=== PATIENT | female | born 1935 | race Hispanic/Latino ===

== ENCOUNTER 2021-01-26 20:19 | Inpatient (IN) | payer MEDICARE, SELFPAY ==
[2021-01-26 20:49] LABS: #Basophils 0.1 thou/uL (0.0-0.2); #Eosinphils 0.2 thou/uL (0.0-0.7); #Lymphocytes 4.5 thou/uL (1.20-3.40); #Monocytes 0.8 thou/uL (0.11-0.59); #Neutrophils 5.1 thou/uL (1.40-6.50); %Basophils 0.7 % (0.0-1.0); %Eosinophils 1.7 % (0.0-10.0); %Lymphocytes 42.5 % (21.0-51.0); %Monocytes 7.3 % (0.0-10.0); %Neutrophils 47.8 % (42.0-75.0); Hemoglobin 12.5 g/dL (12.0-16.0); Mean Corpuscular HGB CONC 33.8 g/dL (32.0-36.0); Mean Corpuscular Volume 91.6 fL (78.0-98.0); Mean Platelet Volume 7.2 fL (7.4-10.4); Platelet Count 317 thou/uL (130-400); RBC Distribution Width 12.3 % (11.5-14.5); Red Blood Cell (RBC) Count 4.04 mill/uL (4.20-5.40); White Blood Cell (WBC) Count 10.6 thou/uL (4.8-10.8)
[2021-01-26 21:02] LABS: Prothrombin Time 13.3 sec (12.0-14.7)
[2021-01-26 21:03] LABS: PTT 30.3 sec (22.9-36.1)
[2021-01-26] MEDS ORDERED: levETIRAcetam in NS 100 ML ONE (21:05)
[2021-01-26 21:10] LABS: ALT (SGPT) 10 U/L (8-55); AST (SGOT) 12 U/L (5-34); Albumin 3.3 g/dL (3.4-4.8); Alkaline Phosphatase 140 U/L (40-110); Anion Gap 13 mmol/L (10-20); BUN (Urea Nitrogen) 23 mg/dL (9.8-20.1); Bilirubin, Total 0.5 mg/dL (0.2-1.2); CK (CPK) 26 U/L (29-168); Calc. Creatinine Clearance 0 mL/min (70-130); Calcium 9.1 mg/dL (7.8-10.44); Carbon Dioxide 24 mmol/L (23-31); Chloride 107 mmol/L (98-107); Globulin 3.1 g/dL (2.4-3.5); Glucose 104 mg/dL (83-110); Lipase 12 U/L (8-78); Potassium 4.2 mmol/L (3.5-5.1); Protein, Total 6.4 g/dL (5.8-8.1); Sodium 140 mmol/L (136-145)
[2021-01-26] MEDS ORDERED: Aspirin 325 MG TAB ONE (21:42)
[2021-01-26] MEDS ORDERED: Senokot S 8.6-50 MG TAB PO PRN (22:29)
[2021-01-27] MEDS: Sodium Chloride 0.9% 1,000 ML IV SCH ×2 (00:13→10:50)
[2021-01-27 00:20] LABS: Troponin I Less than 0.010 ng/mL (< 0.028)
[2021-01-27 03:01] VITALS: BMI 24.8
[2021-01-27 03:36] LABS: #Basophils 0.1 thou/uL (0.0-0.2); #Eosinphils 0.1 thou/uL (0.0-0.7); #Lymphocytes 3.1 thou/uL (1.20-3.40); #Monocytes 0.8 thou/uL (0.11-0.59); #Neutrophils 6.3 thou/uL (1.40-6.50); %Basophils 0.8 % (0.0-1.0); %Eosinophils 1.1 % (0.0-10.0); %Neutrophils 60.2 % (42.0-75.0); Hemoglobin 11.6 g/dL (12.0-16.0); Mean Corpuscular HGB CONC 33.6 g/dL (32.0-36.0); Mean Corpuscular Hemoglobin 30.8 pg (27.0-31.0); Mean Corpuscular Volume 91.8 fL (78.0-98.0); Mean Platelet Volume 7.7 fL (7.4-10.4); Platelet Count 263 thou/uL (130-400); RBC Distribution Width 12.3 % (11.5-14.5); Red Blood Cell (RBC) Count 3.76 mill/uL (4.20-5.40); White Blood Cell (WBC) Count 10.4 thou/uL (4.8-10.8)
[2021-01-27 03:47] LABS: ALT (SGPT) 9 U/L (8-55); AST (SGOT) 10 U/L (5-34); Albumin 2.9 g/dL (3.4-4.8); Alkaline Phosphatase 121 U/L (40-110); Anion Gap 11 mmol/L (10-20); BUN (Urea Nitrogen) 20 mg/dL (9.8-20.1); Bilirubin, Total 0.5 mg/dL (0.2-1.2); Calc. Creatinine Clearance 46 mL/min (70-130); Calcium 8.6 mg/dL (7.8-10.44); Carbon Dioxide 23 mmol/L (23-31); Cardiac Risk 4.2 (Less than 4.5); Chloride 110 mmol/L (98-107); Cholesterol 158 mg/dl (< 200 Desired); Globulin 2.8 g/dL (2.4-3.5); Glucose 106 mg/dL (83-110); HDL Cholesterol 38 mg/dL (>60 Neg Risk); LDL Cholesterol, Calculated 99 mg/dL; Potassium 3.7 mmol/L (3.5-5.1); Protein, Total 5.7 g/dL (5.8-8.1); Sodium 140 mmol/L (136-145); Triglycerides 105 mg/dL (Less than 150)
[2021-01-27 03:49] LABS: Troponin I Less than 0.010 ng/mL (< 0.028)
[2021-01-27 08:55] LABS: SARS-CoV-2 NAA Rapid Test Not Detected (NotDetected)
[2021-01-27] MEDS ORDERED: Famotidine 20 MG TAB PO SCH (09:00)
[2021-01-27] MEDS: Enoxaparin Sodium 40 MG/0.4 ML SYRINGE SC SCH (10:49)
[2021-01-27] MEDS: Carbidopa/Levodopa 25-100 mg Tablet PO SCH ×3 (10:49→21:30)
[2021-01-27] MEDS: Acetaminophen 325 MG TAB PO PRN (10:49)
[2021-01-27 11:39] LABS: Bilirubin Negative (Negative); Blood, Urine Trace (Negative); Glucose, Urine (Dipstick) Negative (Negative); Ketone, Urine Negative (Negative); Leukocyte Negative (Negative); Nitrite Negative (Negative); Protein, Urine (Dipstick) Negative (Neg-Trace); Urobilinogen 0.2 mg/dL (Less than 2); pH, Urine 5.5 (5.0-9.0)
[2021-01-27 11:45] LABS: Clarity Clear (Clear); RBC/HPF 0-3 HPF (0-3); Specific Gravity, Urine 1.026 (1.005-1.030); Squamous Epithelial 0-3 HPF (0-3); WBC/HPF 0-3 HPF (0-3)
[2021-01-27 11:53] LABS: Bacteria/HPF Rare-Few HPF (None Seen)
[2021-01-27] MEDS: Atorvastatin Calcium 40 MG TAB PO SCH (21:30)
[2021-01-28] MEDS: hydrALAZINE 20 MG/ML VIAL SLOW IVP PRN ×2 (00:55→21:42)
[2021-01-28] MEDS: Carbidopa/Levodopa 25-100 mg Tablet PO SCH ×3 (08:42→21:42)
[2021-01-28] MEDS: Enoxaparin Sodium 40 MG/0.4 ML SYRINGE SC SCH (08:42)
[2021-01-28] MEDS: Aspirin Chewable 81 MG TAB PO SCH (08:42)
[2021-01-28] MEDS ORDERED: Famotidine 20 MG TAB PO SCH (09:00)
[2021-01-28] MEDS ORDERED: Fludrocortisone Acetate 0.1 MG TAB PO SCH (15:30)
[2021-01-28] MEDS: Atorvastatin Calcium 40 MG TAB PO SCH (21:42)
[2021-01-29 06:10] LABS: Anion Gap 12 mmol/L (10-20); BUN (Urea Nitrogen) 19 mg/dL (9.8-20.1); Calc. Creatinine Clearance 43 mL/min (70-130); Carbon Dioxide 24 mmol/L (23-31); Chloride 108 mmol/L (98-107); Glucose 92 mg/dL (83-110); Potassium 3.8 mmol/L (3.5-5.1); Sodium 140 mmol/L (136-145)
[2021-01-29] MEDS: Fludrocortisone Acetate 0.1 MG TAB PO SCH (08:31)
[2021-01-29] MEDS: Aspirin Chewable 81 MG TAB PO SCH (08:31)
[2021-01-29] MEDS: Enoxaparin Sodium 40 MG/0.4 ML SYRINGE SC SCH (08:31)
[2021-01-29] MEDS: Carbidopa/Levodopa 25-100 mg Tablet PO SCH ×3 (08:31→20:38)
[2021-01-29] MEDS: Midodrine HCl 5 MG TAB PO SCH ×2 (15:52→21:28)
[2021-01-29] MEDS: Atorvastatin Calcium 40 MG TAB PO SCH (20:38)
[2021-01-30] MEDS: Enoxaparin Sodium 40 MG/0.4 ML SYRINGE SC SCH (09:37)
[2021-01-30] MEDS: Aspirin Chewable 81 MG TAB PO SCH (09:38)
[2021-01-30] MEDS: Carbidopa/Levodopa 25-100 mg Tablet PO SCH ×3 (09:38→20:19)
[2021-01-30] MEDS: Fludrocortisone Acetate 0.1 MG TAB PO SCH (09:38)
[2021-01-30] MEDS: Midodrine HCl 5 MG TAB PO SCH ×3 (09:38→20:19)
[2021-01-30] MEDS: Acetaminophen 325 MG TAB PO PRN (17:39)
[2021-01-30] MEDS: Atorvastatin Calcium 40 MG TAB PO SCH (20:18)
[2021-01-31] MEDS: hydrALAZINE 20 MG/ML VIAL SLOW IVP PRN (00:02)
[2021-01-31] MEDS: Fludrocortisone Acetate 0.1 MG TAB PO SCH (09:37)
[2021-01-31] MEDS: Midodrine HCl 5 MG TAB PO SCH ×3 (09:37→23:35)
[2021-01-31] MEDS: Carbidopa/Levodopa 25-100 mg Tablet PO SCH ×3 (09:37→20:14)
[2021-01-31] MEDS: Aspirin Chewable 81 MG TAB PO SCH (09:37)
[2021-01-31] MEDS: Enoxaparin Sodium 40 MG/0.4 ML SYRINGE SC SCH (09:38)
[2021-01-31] MEDS: Atorvastatin Calcium 40 MG TAB PO SCH (20:14)
[2021-02-01] MEDS: Enoxaparin Sodium 40 MG/0.4 ML SYRINGE SC SCH (10:19)
[2021-02-01] MEDS: Aspirin Chewable 81 MG TAB PO SCH (10:20)
[2021-02-01] MEDS: Midodrine HCl 5 MG TAB PO SCH ×2 (10:21→16:40)
[2021-02-01] MEDS: Fludrocortisone Acetate 0.1 MG TAB PO SCH (10:21)
[2021-02-01] MEDS: Carbidopa/Levodopa 25-100 mg Tablet PO SCH ×2 (10:21→16:40)
[2021-02-01 15:46] VITALS: TEMP 97.6
[2021-02-01 16:26] VITALS: BP 94/59
== END 2021-02-01 18:20 | DRG 312 ==
LOC: ERS 20:19 → 2SE 21:42
PROVIDERS: ADMIT Student in an Organized Health Care Education/Training Program; ATTEND Student in an Organized Health Care Education/Training Program
DX: I95.1 Orthostatic hypotension (principal); R47.01 Aphasia; Z20.822 Contact with and (suspected) exposure to COVID-19; G20 Parkinson's disease; F02.80 Dementia in other diseases classified elsewhere, unspecified severity, without behavioral disturbance, psychotic disturbance, mood disturbance, and anxiety; E77.8 Other disorders of glycoprotein metabolism; R29.810 Facial weakness; D32.0 Benign neoplasm of cerebral meninges; Z79.899 Other long term (current) drug therapy
CPT/HCPCS: 36415; 36416; 70450; 70551; 71045; 80048; 80053; 80061; 81001; 82533; 82550; 83690; 83880; 84146; 84443; 84484; 85025; 85610; 85730; 93005; 93306; 93880; 96365; J0360; J1650; J1953; U0002; U0005